=== PATIENT | female | born 1955 | race Hispanic/Latino ===

== ENCOUNTER 2017-11-20 13:27 | Emergency (ER) | payer MEDICAID ==
[2017-11-20 13:27] VITALS: BMI 53.2
[2017-11-20 13:38] VITALS: BP 147/75; PULSE 98; RESP 16; TEMP 99.6; O2SAT 100
--- NOTE | 2017-11-20 14:04 | ED PDOC ---
Lower Extremity Pain/Injury Time Seen by Provider: 11/20/17 13:45 Chief Complaint (Nursing): Lower Extremity Problem/Injury Chief Complaint (Provider): Right leg pain and swelling History Per: Patient History/Exam Limitations: no limitations Onset/Duration Of Symptoms: Days (x6) Current Symptoms Are (Timing): Still Present Additional Complaint(s): 62 year old female with a history of clots presents to the emergency department complaining of right leg pain and swelling. Patient tripped on a pipe Tuesday and fell. Was evaluated at [facility] with negative X-rays. Complains of pain worsening at night, as well as discomfort of the right calf. Is concerned about infection. Denies fever or chills. PMD: Dr. Lidia Darnell Past Medical History Reviewed: Historical Data, Nursing Documentation, Vital Signs Vital Signs: Last Vital Signs Temp 99.6 F 11/20/17 13:35 Pulse 98 H 11/20/17 13:35 Resp 16 11/20/17 13:35 BP 147/75 11/20/17 13:35 Pulse Ox 100 11/20/17 13:35 - Medical History PMH: Arthritis, Asthma, COPD, Diverticulitis, Kidney Stones, Chronic Kidney Disease Denies: Emphysema, Pneumonia, Pulmonary Embolism, Sleep Apnea Other PMH: History of clots - Surgical History Surgical History: Cholecystectomy - Family History Family History: States: Unknown Family Hx - Immunization History Hx Tetanus Toxoid Vaccination: No Hx Influenza Vaccination: Yes Hx Pneumococcal Vaccination: No - Home Medications Home Medications: Ambulatory Orders Medication Instructions Recorded Albuterol/Ipratropium [Duoneb 3 3 ml IH PRN PRN 06/02/16 mg/0.5 mg (3 ml) UD] Meclizine [Meclizine*] 25 mg PO Q6 08/02/16 Tiotropium [Spiriva] 18 mcg IH DAILY 08/02/16 Dicyclomine [Bentyl] 10 mg PO QID #20 cap 11/16/16 Polyethylene Glycol 3350 [Miralax] 17 gm PO DAILY #270 ml 11/16/16 oxyCODONE/Acetaminophen [Percocet 1 tab PO QID PRN #10 tab 11/16/16 5/325 mg Tab] Aspirin 325 mg PO STAT #30 tab 01/26/17 Rosuvastatin Calcium [Crestor] 10 mg PO HS #30 tab 01/26/17 Methylprednisolone [Medrol Dose 4 mg PO DAILY #21 mg 03/07/17 Pack (21 tabs)] traMADol [Ultram] 50 mg PO QID #15 tab 11/15/17 Cephalexin [Keflex] 500 mg PO QID #28 capsule 11/20/17 - Allergies Allergies/Adverse Reactions: Allergies Allergy/AdvReac Type Severity Reaction Status Date / Time Iodinated Contrast- Oral and Allergy Severe RASH Verified 01/24/17 15:23 IV Dye [Iodinated Contrast Media - IV Dye] morphine Allergy Severe Verified 01/24/17 15:23 Review of Systems ROS Statement: Except As Marked, All Systems Reviewed And Found Negative Constitutional: Negative for: Fever, Chills Musculoskeletal: Positive for: Leg Pain (right leg, calf), Other (swelling of right leg and calf) Physical Exam - Reviewed Nursing Documentation Reviewed: Yes Vital Signs Reviewed: Yes - Physical Exam Appears: Positive for: Non-toxic, No Acute Distress Head Exam: Positive for: ATRAUMATIC, NORMAL INSPECTION, NORMOCEPHALIC Skin: Positive for: Normal Color, Warm, DRY Eye Exam: Positive for: EOMI, Normal appearance, PERRL Pulses-Dorsalis Pedis (L): 2+ Pulses-Dorsalis Pedis (R): 2+ Extremity: Positive for: Swelling (anterior right leg, no signs of cellulitis), Other (Deep abrasion to the right anterior leg, right anterior knee, and left anterior knee. Postive for granulation tissue. Negative for samuel sign. ) Neurologic/Psych: Positive for: Alert, Oriented - ECG O2 Sat by Pulse Oximetry: 100 (RA) Pulse Ox Interpretation: Normal Medical Decision Making Medical Decision Making: Time: 13:52 Initial Plan: --US of the right duplex lower extremity vein (to rule out DVT) Time: 16:33 Right lower extremity venous US: FINDINGS: COMMON FEMORAL VEIN: Unremarkable. SUPERFICIAL FEMORAL VEIN: Unremarkable. POPLITEAL VEIN: Unremarkable. POSTERIOR TIBIAL VEIN: Unremarkable. OTHER FINDINGS: None. IMPRESSION: No evidence of deep venous thrombosis in the right lower extremity. Patient is medically stable for discharge home. Scribe Attestation: Documented by Dang Bonner, acting as a scribe for Maria Del Carmen Cheung PA-C Provider Scribe Attestation: All medical record entries made by the Scribe were at my direction and personally dictated by me. I have reviewed the chart and agree that the record accurately reflects my personal performance of the history, physical exam, medical decision making, and the department course for this patient. I have also personally directed, reviewed, and agree with the discharge instructions and disposition. Disposition - Clinical Impression Clinical Impression: Abrasion, Leg pain, right - Patient ED Disposition Is Patient to be Admitted: No Counseled Patient/Family Regarding: Studies Performed, Diagnosis, Need For Followup, Rx Given - Disposition Disposition: Routine/Home Disposition Time: 16:02 Condition: FAIR Prescriptions: Cephalexin [Keflex] 500 mg PO QID #28 capsule Instructions: Leg Pain (ED) Forms: [facility] (Greenlandic)
--- NOTE | 2017-11-20 16:34 | US ---
PROCEDURE: Right lower extremity venous duplex Doppler. HISTORY: right leg pain COMPARISON: None available. TECHNIQUE: Common femoral, superficial femoral, popliteal and posterior tibial veins were evaluated. Flow was assessed with color Doppler, compressibility, assessment of phasic flow and augmentation response. FINDINGS: COMMON FEMORAL VEIN: Unremarkable. SUPERFICIAL FEMORAL VEIN: Unremarkable. POPLITEAL VEIN: Unremarkable. POSTERIOR TIBIAL VEIN: Unremarkable. OTHER FINDINGS: None. IMPRESSION: No evidence of deep venous thrombosis in the right lower extremity.
== END 2017-11-20 16:14 | disposition home or self-care (01) ==
LOC: H.ER 13:27
DX: M79.604 Pain in right leg (principal); R60.0 Localized edema; Z79.82 Long term (current) use of aspirin